=== PATIENT | female | born 1975 | race African-American/Black ===

== ENCOUNTER 2017-07-13 05:34 | Emergency (ER) | payer BC, MEDICAID ==
[~2017-07-13] VITALS: Ht 172.7 cm; Wt 105.0 kg
[2017-07-13 05:35] VITALS: BP 137/73; PULSE 75; RESP 16; TEMP 97.9; O2SAT 99
--- NOTE | 2017-07-13 06:29 | PD ---
HPI . Spotting Chief Complaint: Related Problem Time Seen by Provider: 05:49 Travel History International Travel<30 days: No Contact w/Intl Traveler<30days: No Traveled to known affect area: No History of Present Illness HPI Patient presents stating that she is 10 weeks and had some spotting this morning. She denies any pain. It is very mild. She denies any urinary tract symptoms. She states her last sexual intercourse was about 2 weeks ago. She is under the care of an OB and states she had an ultrasound done a couple of weeks ago. She has a viable IUP. She does not know her blood type. She has had 2 previous children but neither of them were born here. She does not recall having to have any shots while she was . [facility] Past Medical History Medical History: Denies Significant Hx Diminished Hearing: No ?: : 3 Para: 2 Past Surgical History Appendectomy: Yes Social History Alcohol Use: No Tobacco Use: No Substance Use: No Allergies-Medications (Allergen,Severity, Reaction): Coded Allergies: No Known Allergies (Verified Adverse Reaction, Unknown, 07/13/17) Reported Meds & Prescriptions Reported Meds & Active Scripts Active No Active Prescriptions or Reported Medications Review of Systems Except as stated in HPI: all other systems reviewed are Neg Physical Exam Narrative GENERAL: Very pleasant woman who is in no acute distress. SKIN: warm/dry. HEAD: Normocephalic. Atraumatic. EYES: Pupils equal and round. No scleral icterus. No injection or drainage. ENT: No nasal bleeding or discharge. Mucous membranes pink and moist. NECK: Trachea midline. Full range of motion without pain.. CARDIOVASCULAR: Regular rate and rhythm. RESPIRATORY: No accessory muscle use. Clear to auscultation. Breath sounds equal bilaterally. GASTROINTESTINAL: Abdomen soft. Nontender. Bowel sounds present. Nondistended. : Normal female. Scant blood in the vaginal vault. Os is closed. No cervical motion tenderness. No adnexal tenderness or masses. MUSCULOSKELETAL: No obvious deformities. NEUROLOGICAL: Awake and alert. No obvious cranial nerve deficits. Motor grossly within normal limits. Normal speech. PSYCHIATRIC: Appropriate mood and affect; insight and judgment normal. Data Data Last Documented VS Vital Signs Date Time Temp Pulse Resp B/P (MAP) Pulse Ox O2 Delivery O2 Flow Rate FiO2 07/13/17 05:35 97.9 75 16 137/73 (94) 99 Room Air Orders Orders Type And Screen (07/13/17 05:57) Urinalysis - C+S If Indicated (07/13/17 05:57) MDM Medical Decision Making Medical Screen Exam Complete: Yes Emergency Medical Condition: Yes Medical Record Reviewed: Yes (no previous blood type in her records.) Differential Diagnosis Differential diagnosis of vaginal bleeding includes but is not limited to dysfunctional uterine bleeding, normal menstrual cycle, ectopic , spontaneous AB, PID. Narrative Course This patient presents stating that she is 10 weeks and that she has some vaginal spotting today. She is already under the care of an bullard operator and has already had an ultrasound showing an IUP. She is having no cramping. She has a benign pelvic exam. I have ordered a type and screen and a UA. Her care is being turned over to Dr. Hale pending the results of her type and screen and urinalysis. I anticipate discharge. Diagnosis Primary Impression: Bleeding in early Patient Instructions: General Instructions, at 39 to 40 Weeks (GEN) Scripts No Active Prescriptions or Reported Meds Disposition: 01 DISCHARGE HOME Condition: Stable Asya Long MD Jul 13, 2017 06:29
[2017-07-13 07:22] LABS: BACTERIA, URINE OCC /hpf; BLOOD, URINE SMALL (NEG); COMMENT (UR) CULT NOT INDICATED; CULTURE IF INDICATED CULT NOT INDICATED; GLUCOSE,URINE NEG (NEG); KETONE, URINE NEG (NEG); MUCUS URINE FEW /lpf (OCC); NITRITE,URINE NEG (NEG); SQUAMOUS EPITHELIAL CELL URINE 1 /hpf (0-5); URINE COLOR YELLOW (YELLW/STRAW)
--- NOTE | 2017-07-13 07:36 | PD ---
Data Data Last Documented VS Vital Signs Date Time Temp Pulse Resp B/P (MAP) Pulse Ox O2 Delivery O2 Flow Rate FiO2 07/13/17 07:51 68 15 139/71 (93) 99 07/13/17 05:35 97.9 Room Air Orders Orders Type And Screen (07/13/17 05:57) Urinalysis - C+S If Indicated (07/13/17 05:57) Ed Discharge Order (07/13/17 07:35) Labs Laboratory Tests Test 07/13/17 07:00 Urine Color YELLOW Urine Turbidity HAZY Urine pH 8.0 Urine Specific [place] 1.016 Urine Protein TRACE mg/dL Urine Glucose (UA) NEG mg/dL Urine Ketones NEG mg/dL Urine Occult Blood SMALL Urine Nitrite NEG Urine Bilirubin NEG Urine Urobilinogen LESS THAN 2.0 MG/DL Urine Leukocyte Esterase MOD Urine RBC 1 /hpf Urine WBC 1 /hpf Urine Squamous Epithelial Cells 1 /hpf Urine Bacteria OCC /hpf Urine Mucus FEW /lpf Microscopic Urinalysis Comment CULT NOT INDICATED MDM Medical Record Reviewed: Yes Supervised Visit with CORBIN: No Narrative Course Rh + Please refer to Dr Dee's note. Pt resting comfortably at approx 8:00AM. Pelvic rest precautions discussed. Follow up with obstetrics in 2 days; pt verbalized understanding Diagnosis Primary Impression: Bleeding in early Referrals: [facility] 2 days Patient Instructions: General Instructions Med/Other Pt SpecificInfo: No Change to Meds Scripts No Active Prescriptions or Reported Meds Disposition: 01 DISCHARGE HOME Condition: Stable Richie Hale MD Jul 13, 2017 07:36
[2017-07-13 07:51] VITALS: BP 139/71
== END 2017-07-13 07:53 | disposition home or self-care (01) ==
LOC: NEPC 05:34
DX: O20.9 Hemorrhage in early pregnancy, unspecified (principal); Z3A.10 10 weeks gestation of pregnancy
CPT/HCPCS: 81001; 86850; 86900; 86901; 99283

== ENCOUNTER 2017-07-28 07:31 | Emergency (ER) | payer MEDICAID ==
[~2017-07-28] VITALS: Ht 172.7 cm; Wt 104.5 kg
[2017-07-28 07:35] VITALS: BP 120/68; PULSE 72; RESP 16; TEMP 97.6; O2SAT 100
[2017-07-28 08:11] LABS: BLOOD, URINE LARGE (NEG); GLUCOSE,URINE NEG (NEG); KETONE, URINE NEG (NEG); NITRITE,URINE NEG (NEG); PH, URINE 6.5 (5.0-8.5); URINE COLOR YELLOW (YELLW/STRAW)
[2017-07-28 08:22] LABS: BACTERIA, URINE FEW /hpf; SQUAMOUS EPITHELIAL CELL URINE > 8 /hpf (0-5)
--- NOTE | 2017-07-28 08:22 | PD ---
HPI . Spotting Chief Complaint: Related Problem Time Seen by Provider: 07:53 Travel History International Travel<30 days: No Contact w/Intl Traveler<30days: No Traveled to known affect area: No History of Present Illness HPI This patient presents stating that she is "spotting again." She states that she is about 13 weeks by dates and by ultrasound. She was seen here on 07/13 for spotting. She was found to be O+. The spotting was very mild and she was discharged home. She states that she has subsequently been seen by her machine packer. She states that her machine packer told her that the spotting was not really concerning. She comes back today stating that she had some spotting first thing this morning. The spotting is very mild. She states that she has not had recent sexual intercourse. She has no pain. PFSH Past Medical History Hx Anticoagulant Therapy: No Cardiovascular Problems: No Chemotherapy: No Cerebrovascular Accident: No Diabetes: No Diminished Hearing: No Respiratory: No ?: LMP: April 30, 2017 : 3 Para: 2 Past Surgical History Appendectomy: Yes Hysterectomy: No Social History Alcohol Use: No Tobacco Use: No Substance Use: No Allergies-Medications (Allergen,Severity, Reaction): Coded Allergies: No Known Allergies (Verified Adverse Reaction, Unknown, 07/13/17) Reported Meds & Prescriptions Reported Meds & Active Scripts Active No Active Prescriptions or Reported Medications Review of Systems Except as stated in HPI: all other systems reviewed are Neg Genitourinary: Positive: Vaginal Bleeding, No: Urgency, Frequency, Dysuria, Pelvic Pain Physical Exam Narrative GENERAL: Awake and alert and in no acute distress. SKIN: Warm and dry. HEAD: Normocephalic/atraumatic. EYES: Pupils are equal. Extraocular movements are intact. NECK: Normal range of motion. CARDIOVASCULAR: Regular rate and rhythm. RESPIRATORY: Nonlabored respirations. : Normal female. Very scant blood around the os. The os is closed. Bimanual exam is nontender without masses. MUSCULOSKELETAL: Atraumatic. NEUROLOGICAL: Nonfocal. PSYCHIATRIC: Appropriate mood and affect. Data Data Last Documented VS Vital Signs Date Time Temp Pulse Resp B/P (MAP) Pulse Ox O2 Delivery O2 Flow Rate FiO2 07/28/17 07:35 97.6 72 16 120/68 (85) 100 Orders Orders Urinalysis - C+S If Indicated (07/28/17 07:53) Labs Laboratory Tests Test 07/28/17 07:50 Urine Color YELLOW Urine Turbidity HAZY Urine pH 6.5 Urine Specific [place] 1.021 Urine Protein 30 mg/dL Urine Glucose (UA) NEG mg/dL Urine Ketones NEG mg/dL Urine Occult Blood LARGE Urine Nitrite NEG Urine Bilirubin NEG Urine Urobilinogen LESS THAN 2.0 MG/DL Urine Leukocyte Esterase LARGE Urine RBC 4-9 /hpf Urine WBC 3-5 /hpf Urine Squamous Epithelial Cells > 8 /hpf Urine Bacteria FEW /hpf Urine Mucus FEW /lpf Microscopic Urinalysis Comment CULT NOT INDICATED MDM Medical Decision Making Medical Screen Exam Complete: Yes Emergency Medical Condition: Yes Medical Record Reviewed: Yes (patient was seen here on 07/13 for similar symptoms. Her blood type is O+.) Differential Diagnosis Differential diagnosis of bleeding in includes but is not limited to physiologic bleeding, spontaneous AB, ectopic , placenta previa Narrative Course This patient presents complaining with spotting in . She has very scant blood around the cervical os. Her exam is otherwise completely normal. I have ordered a UA. UA>>large LE, 3-5 WBCs, few bact. It also has blood and mucous which is contaminant. Since she is , I will go ahead and treat her with Macrobid. Diagnosis Primary Impression: Bleeding in early Additional Impression: Urinary tract infection Qualified Codes: N30.00 - Acute cystitis without hematuria Patient Instructions: General Instructions, at 11 to 14 Weeks (DC), Urinary Tract Infection in (DC) Med/Other Pt SpecificInfo: Prescription(s) given Scripts Nitrofurantoin Monohydrate Macrocrystals (Macrobid) 100 Mg Cap 100 MG PO BID for Infection for 3 Days, #6 CAP 0 Refills Prov: Asya Long MD 07/28/17 Disposition: 01 DISCHARGE HOME Condition: Stable Asya Long MD Jul 28, 2017 08:22
[2017-07-28 08:23] LABS: MUCUS URINE FEW /lpf (OCC)
[2017-07-28 08:25] LABS: COMMENT (UR) CULT NOT INDICATED; CULTURE IF INDICATED CULT NOT INDICATED
[2017-07-28] MEDS ORDERED: MACR100C2 PO (08:30)
== END 2017-07-28 08:48 | disposition home or self-care (01) ==
LOC: NEPC 07:31
DX: O20.9 Hemorrhage in early pregnancy, unspecified (principal); O23.11 Infections of bladder in pregnancy, first trimester; Z3A.13 13 weeks gestation of pregnancy
CPT/HCPCS: 81001; 99284